=== PATIENT | male | born 1960 | race Caucasian/White ===

== ENCOUNTER 2017-10-09 15:48 | Inpatient (IN) | payer BC ==
[2017-10-09] MEDS ORDERED: Morphine INJ* 4 MG/ML 1 ML CARPUJECT IV ONE ×2 (17:20→20:13)
[2017-10-09] MEDS ORDERED: Ondansetron INJ* 2 MG/ML VIAL IV ONE (17:20)
[2017-10-09] MEDS ORDERED: NS 0.9% 1000 ML* 2,000 ML IV ONE (17:20)
[2017-10-09] MEDS ORDERED: Morphine INJ* 4 MG/ML 1 ML SYRINGE (NEW SYRINGE VERSION) ONE ×2 (17:42→23:33)
[2017-10-09 18:07] LABS: ABS Basophils 0 10^3/ul (0-0.2); ABS Eosinophils 0 10^3/ul (0-0.6); ABS Monocytes 1.5 10^3/ul (0-0.8); ABS Neutrophils 11.9 10^3/ul (1.5-7.7); ABS Nucleated RBC 0 10^3/ul; Eosinophil % 0.1 % (0-6); Hematocrit 45 % (42-52); Hemoglobin 15.6 g/dl (14.0-18.0); Lymphocyte % 7.2 % (25-47); Mean Corpuscular HGB Conc 35 g/dl (31-36); Mean Corpuscular Hemoglobin 32 pg (27-31); Mean Corpuscular Volume 91 fL (80-94); Mean Platelet Volume 9 um3 (7.4-10.4); Nucleated Red Blood Cells % 0; Platelet Count 179 10^3/ul (150-450); Red Blood Count 4.93 10^6/ul (4.0-5.4); Red Cell Distribution Width 14 % (10.5-15); White Blood Count 14.4 10^3/ul (3.5-10.8)
[2017-10-09 18:15] LABS: INR 0.94 (0.77-1.02)
[2017-10-09] MEDS ORDERED: Iohexol 300* (CONTRAST) 10 ML SDV IV ONE (19:17)
[2017-10-09 19:46] LABS: Urine Appearance Clear; Urine Blood Negative (Negative); Urine Color Yellow; Urine Ketones Negative (Negative); Urine Protein Negative (Negative); Urine Specific Gravity 1.008 (1.010-1.030); Urine Urobilinogen Negative (Negative)
--- NOTE | 2017-10-09 19:46 | RAD ---
INDICATION: Left lower quadrant pain with nausea and diarrhea COMPARISON: None TECHNIQUE: Axial source images were obtained from the hemidiaphragms to the symphysis pubis following administration of oral and intravenous contrast. 121 mL Omnipaque 300 was utilized. Coronal and sagittal reconstructed images were acquired. Lung bases: The lung bases are clear. Liver: The liver is enlarged with findings of hepatic steatosis. There are no masses. There is no ductal dilatation. Gallbladder: There are no calcified gallstones. There is no evidence of wall thickening or pericholecystic fluid. Spleen: The spleen is normal in size. There are no masses. Pancreas: There is no focal pancreatic mass or ductal dilatation. Adrenal glands: There is no evidence of adrenal mass. Kidneys: The kidneys are normal in size and position. There are prompt nephrograms and there is prompt excretion bilaterally. There is a 2.5 cm midpole left renal cyst. There is no evidence of nephrolithiasis. Adenopathy: There is no evidence of adenopathy by size criteria. Fluid collections: Perienteric mesenteric stranding at the level of the junction of the sigmoid and descending colon. Vessels:There are atherosclerotic changes involving the aorta and iliac vessels. There is no focal aneurysm. The IVC appears normal. GI tract: The upper GI tract is unremarkable. The terminal ileum and ileocecal valve appear normal. There is mural thickening with perienteric stranding at the level of the junction of sigmoid and descending colon. There are scattered diverticula of the sigmoid colon. There are no priors of obstruction. There is no free intraperitoneal air The remainder of the colon is unremarkable. Pelvic organs: The prostate and seminal vesicles appear normal Bladder: There are no bladder masses. Abdominal and pelvic soft tissues: The extraperitoneal abdominal and pelvic soft tissues appear normal.. Osseous structures: There are no acute osseous findings. Other: None IMPRESSION: MURAL THICKENING WITH PERIENTERIC STRANDING AT THE JUNCTION OF SIGMOID AND DESCENDING COLON. THE FINDINGS ARE COMPATIBLE WITH ACUTE DIVERTICULITIS.
[2017-10-09] MEDS ORDERED: Ciprofloxacin 400MG IVPREMIX(* 400 MG/200 ML BAG IVPB ONE (20:13)
[2017-10-09] MEDS ORDERED: NS 0.9% 1000 ML* 1,000 ML IV SCH (20:15)
[2017-10-09] MEDS ORDERED: Ondansetron INJ* 2 MG/ML VIAL IV PRN (21:02)
[2017-10-09] MEDS ORDERED: Acetaminophen TAB* 325 MG PO PRN (21:02)
--- NOTE | 2017-10-09 21:13 | ED ---
Shanel Young Thomas, scribed for Isra Cueto MD on 10/09/17 at 1749 . Abdominal Pain/Male - HPI Summary HPI Summary: The patient is a 47 year old male brought in by ambulance from [facility] urgent care complaining of non-radiating LLQ abdominal pain that began today at 00:00. Past surgical history includes appendectomy. - History of Current Complaint Chief Complaint: EDAbdPain Stated Complaint: ABD PAIN Time Seen by Provider: 10/09/17 17:11 Hx Obtained From: Patient Onset/Duration: Lasting Hours, Still Present Timing: Constant Pain Intensity: 7 Pain Scale Used: 0-10 Numeric Location: Discrete At: LLQ Aggravating Factor(s): Nothing Alleviating Factor(s): Nothing Associated Signs And Symptoms: Negative: Fever - Allergies/Home Medications Allergies/Adverse Reactions: Allergies Allergy/AdvReac Type Severity Reaction Status Date / Time Tetracyclines Allergy Severe GI Upset Verified 10/09/17 15:54 PMH/Surg Hx/FS Hx/Imm Hx Opthamlomology History: Denies: Hx Legally Blind EENT History: Denies: Hx Deafness - Surgical History Surgery Procedure, Year, and Place: Appendectomy Infectious Disease History: No Infectious Disease History: Denies: Traveled Outside the [place] in Last 30 Days - Family History Known Family History: Negative: Respiratory Disease - Social History Alcohol Use: Weekly Substance Use Type: Reports: None Smoking Status (MU): Former Smoker Review of Systems Negative: Fever Positive: Abdominal Pain All Other Systems Reviewed And Are Negative: Yes Physical Exam - Summary Physical Exam Summary: General: Well-appearing. Mild to moderate pain distress. Skin: warm, color reflects adequate perfusion, dry Head: normal Eyes: EOMI, RULA ENT: normal Neck: supple, nontender Respiratory: CTA, breath sounds present Cardiovascular: RRR Abdomen: He is tender to palpation to his LLQ. Bowel: hypoactive. Musculoskeletal: normal, strength/ROM intact Neurological: normal, sensory/motor intact, A&O x3 Psychological: affect/mood appropriate Triage Information Reviewed: Yes Vital Signs On Initial Exam: Initial Vitals Temp Pulse Resp BP Pulse Ox 99.1 F 115 17 152/94 98 10/09/17 15:49 10/09/17 15:49 10/09/17 15:49 10/09/17 15:49 10/09/17 15:49 Vital Signs Reviewed: Yes Diagnostics - Vital Signs Vital Signs Temp Pulse Resp BP Pulse Ox 10/09/17 15:49 99.1 F 115 17 152/94 98 - Laboratory Lab Results: Lab Results 10/09/17 10/09/17 10/09/17 Range/Units 17:55 17:55 17:55 WBC 14.4 H (3.5-10.8) 10^3/ul RBC 4.93 (4.0-5.4) 10^6/ul Hgb 15.6 (14.0-18.0) g/dl Hct 45 (42-52) % MCV 91 (80-94) fL MCH 32 H (27-31) pg MCHC 35 (31-36) g/dl RDW 14 (10.5-15) % Plt Count 179 (150-450) 10^3/ul MPV 9 (7.4-10.4) um3 Neut % (Auto) 82.3 (38-83) % Lymph % (Auto) 7.2 L (25-47) % Baker % (Auto) 10.1 H (0-7) % Eos % (Auto) 0.1 (0-6) % Baso % (Auto) 0.3 (0-2) % Absolute Neuts (auto) 11.9 H (1.5-7.7) 10^3/ul Absolute Lymphs (auto) 1.0 (1.0-4.8) 10^3/ul Absolute Monos (auto) 1.5 H (0-0.8) 10^3/ul Absolute Eos (auto) 0 (0-0.6) 10^3/ul Absolute Basos (auto) 0 (0-0.2) 10^3/ul Absolute Nucleated RBC 0 10^3/ul Nucleated RBC % 0 INR (Anticoag Therapy) 0.94 (0.77-1.02) APTT 31.1 (26.0-36.3) seconds Sodium 135 (133-145) mmol/L Potassium 3.9 (3.5-5.0) mmol/L Chloride 100 L (101-111) mmol/L Carbon Dioxide 29 (22-32) mmol/L Anion Gap 6 (2-11) mmol/L BUN 14 (6-24) mg/dL Creatinine 1.08 (0.67-1.17) mg/dL Est GFR ( Amer) 90.0 (>60) Est GFR (Non-Af Amer) 70.0 (>60) BUN/Creatinine Ratio 13.0 (8-20) Glucose 107 H (70-100) mg/dL Lactic Acid (0.5-2.0) mmol/L Calcium 9.5 (8.6-10.3) mg/dL Total Bilirubin 1.50 H (0.2-1.0) mg/dL AST 15 (13-39) U/L ALT 24 (7-52) U/L Alkaline Phosphatase 46 (34-104) U/L C-Reactive Protein 129.47 H (< 5.00) mg/L Total Protein 7.2 (6.4-8.9) g/dL Albumin 4.4 (3.2-5.2) g/dL Globulin 2.8 (2-4) g/dL Albumin/Globulin Ratio 1.6 (1-3) Lipase < 10 L (11.0-82.0) U/L Urine Color Urine Appearance Urine pH (5-9) Ur Specific Jenkins (1.010-1.030) Urine Protein (Negative) Urine Ketones (Negative) Urine Blood (Negative) Urine Nitrate (Negative) Urine Bilirubin (Negative) Urine Urobilinogen (Negative) Ur Leukocyte Esterase (Negative) Urine Glucose (Negative) 10/09/17 10/09/17 Range/Units 17:55 19:30 WBC (3.5-10.8) 10^3/ul RBC (4.0-5.4) 10^6/ul Hgb (14.0-18.0) g/dl Hct (42-52) % MCV (80-94) fL MCH (27-31) pg MCHC (31-36) g/dl RDW (10.5-15) % Plt Count (150-450) 10^3/ul MPV (7.4-10.4) um3 Neut % (Auto) (38-83) % Lymph % (Auto) (25-47) % Baker % (Auto) (0-7) % Eos % (Auto) (0-6) % Baso % (Auto) (0-2) % Absolute Neuts (auto) (1.5-7.7) 10^3/ul Absolute Lymphs (auto) (1.0-4.8) 10^3/ul Absolute Monos (auto) (0-0.8) 10^3/ul Absolute Eos (auto) (0-0.6) 10^3/ul Absolute Basos (auto) (0-0.2) 10^3/ul Absolute Nucleated RBC 10^3/ul Nucleated RBC % INR (Anticoag Therapy) (0.77-1.02) APTT (26.0-36.3) seconds Sodium (133-145) mmol/L Potassium (3.5-5.0) mmol/L Chloride (101-111) mmol/L Carbon Dioxide (22-32) mmol/L Anion Gap (2-11) mmol/L BUN (6-24) mg/dL Creatinine (0.67-1.17) mg/dL Est GFR ( Amer) (>60) Est GFR (Non-Af Amer) (>60) BUN/Creatinine Ratio (8-20) Glucose (70-100) mg/dL Lactic Acid 1.2 (0.5-2.0) mmol/L Calcium (8.6-10.3) mg/dL Total Bilirubin (0.2-1.0) mg/dL AST (13-39) U/L ALT (7-52) U/L Alkaline Phosphatase (34-104) U/L C-Reactive Protein (< 5.00) mg/L Total Protein (6.4-8.9) g/dL Albumin (3.2-5.2) g/dL Globulin (2-4) g/dL Albumin/Globulin Ratio (1-3) Lipase (11.0-82.0) U/L Urine Color Yellow Urine Appearance Clear Urine pH 7.0 (5-9) Ur Specific Jenkins 1.008 L (1.010-1.030) Urine Protein Negative (Negative) Urine Ketones Negative (Negative) Urine Blood Negative (Negative) Urine Nitrate Negative (Negative) Urine Bilirubin Negative (Negative) Urine Urobilinogen Negative (Negative) Ur Leukocyte Esterase Negative (Negative) Urine Glucose Negative (Negative) Result Diagrams: 10/09/17 17:55 10/09/17 17:55 Lab Statement: Any lab studies that have been ordered have been reviewed, and results considered in the medical decision making process. - CT CT Abd/Pel CT Interpretation: Positive (See Comments) - MURAL THICKENING WITH PERIENTERIC STRANDING AT THE JUNCTION OF SIGMOID AND DESCENDING COLON. THE FINDINGS ARE COMPATIBLE WITH ACUTE DIVERTICULITIS. Dr. Cueto has reviewed this report. CT Interpretation Completed By: Radiologist Abdominal Pain Fem Course/Dx - Course Course Of Treatment: ADMIT HOSPITALIST - Diagnoses Provider Diagnoses: Diverticulitis Discharge - Discharge Plan Condition: Stable Disposition: ADMITTED TO [facility] Referrals: Lencho Whipple MD [Primary Care Provider] - The documentation as recorded by the Shanel corea Thomas accurately reflects the service I personally performed and the decisions made by , Isra Cueto MD.
[2017-10-09] MEDS ORDERED: Morphine INJ* 4 MG/ML 1 ML SYRINGE (NEW SYRINGE VERSION) IV PRN (23:00)
[2017-10-09] MEDS: NS 0.9% 1000 ML* 1,000 ML IV SCH (23:00)
[2017-10-09] MEDS ORDERED: metroNIDAZOLE IV 500 MG/100ML* 500 MG/100 ML BAG IVPB ONE (23:15)
[2017-10-09] MEDS ORDERED: Ondansetron INJ* 2 MG/ML VIAL ONE (23:32)
--- NOTE | 2017-10-10 00:29 | HP ---
CC: Dr. Whipple * ADMISSION HISTORY AND PHYSICAL: DATE OF ADMISSION: PRIMARY CARE PROVIDER: Dr. Whipple. MY ATTENDING WHILE IN THE HOSPITAL: Dr. Wallace Burrell.* (DICTATED BY ELLIOT QUIROGA) CHIEF COMPLAINT: Abdominal pain x20 hours. HISTORY OF PRESENT ILLNESS: Mr. Mcdaniel is a 57-year-old male with past medical history significant only for peptic ulcer disease when he was 21, who presents with severe abdominal pain increasing since midnight of last night. The patient states that he has a 2-inch area of pain in his left lower quadrant, which he describes as stabbing, constant, getting worse. Responsive to pain medication, 7/10. After pain medications, 8/10 and it is worst. The patient has never had any episodes like this before. The patient had 2 small episodes of diarrhea within the past 24 hours, neither of which had any blood in them and were "normal color for him." The patient has not eaten since 8 o'clock last night. The patient has been nauseous, but had not vomited. The patient had subjective fevers and chills. Denied chest pain or shortness of breath. The patient states that the pain is worse with movement and slowly progressive. The patient took Tagamet at home but with no relief. The patient denied recent illness, exposure to flu. The patient has no long-term history of constipation. The patient has had colonoscopy at 48, which showed 2 non- cancerous polyps and a repeat colonoscopy at 54, which showed no polyps at all and is planning for another one in 10 years. The patient had his appendix out when he was in his teens in the 70s. PAST MEDICAL HISTORY: Peptic ulcer disease when he was 21, unknown if it was bleeding or not; gout, the patient has not had a flare in 5 years; ocular migraines, approximately 4 times a year. PAST SURGICAL HISTORY: Appendectomy. MEDICATIONS: 1. Allopurinol 300 mg p.o. daily. 2. Magnesium oxide 400 mg p.o. daily. ALLERGIES: The patient gets stomach upset from TETRACYCLINE. No other adverse reactions known. FAMILY HISTORY: The patient's father of [place] at 83 and also had CVA. The patient's mother of complications of chronic kidney disease when she was 94. The patient denies history of cancer in his family or any other conditions that are prevalent. The patient has one brother whose medical history is not known. SOCIAL HISTORY: The patient smoked for approximately 20 pack years, quit 18 years ago. The patient drinks alcohol socially generally on the weekends. The patient denies illicit drug use. The patient used to work at [employer] in [employer]. The patient is and has no children. REVIEW OF SYSTEMS: A 14-point review of systems was reviewed and is negative except as above. PHYSICAL EXAMINATION GENERAL: The patient is a 57-year-old male, who appears stated age and sitting comfortably in bed, in no acute distress. VITAL SIGNS: At the time of examination, temperature 101.1, pulse rate 92, respiratory rate 18, oxygen saturation 100% on room air, blood pressure 135/79. HEENT: Head normocephalic, atraumatic. Sclerae anicteric. No conjunctival injection. Nasal mucosa is moist. Oral mucosa moist. No pharyngeal erythema, discharge, or exudate. NECK: Supple, nontender. No lymphadenopathy. No carotid bruits auscultated. RESPIRATORY: Clear to auscultation bilaterally. No wheezes, rales, or rhonchi. Good air exchange bilaterally. CARDIAC: Regular rate and rhythm. No clicks, murmurs, gallops, or rubs. Pulses are 2+ in the bilateral dorsalis pedis, posterior tibialis, and radial areas. No lower extremity edema noted. ABDOMEN: Soft. Very tender to palpation in the left lower quadrant without rebound or referred tenderness. Bowel sounds present and normoactive in all 4 quadrants. No hepatosplenomegaly. No abdominal bruits auscultated. GENITOURINARY: No suprapubic tenderness or CVA tenderness. NEURO: Cranial nerves II through XII intact. Normal gait. No focal deficits. PSYCHIATRIC: Pleasant and cooperative. SKIN: Clean, dry, and intact. No rash. DIAGNOSTIC STUDIES/LAB DATA: White blood cell count 14.4, hemoglobin 15.6, hematocrit 45, and platelet count 179. INR 0.94, APTT 31.1. Sodium 135, potassium 3.9, chloride 100, carbon dioxide 29, anion gap 6, BUN 14, creatinine 1.08, glucose 107, lactic acid 1.2, calcium 9.5. Bilirubin 1.5, AST 15, ALT 24 , alkaline phosphatase 46. CRP 129.47. Total protein 7.2, albumin 4.4, globulin 2.8. Lipase less than 10. Urine: Yellow, clear, specific gravity 1.008, no other significant findings. Abdomen and pelvis CT read as thickening with perienteric stranding at the junction of the sigmoid and descending colon. These findings are compatible with acute diverticulitis. ASSESSMENT AND PLAN: The patient is a 57-year-old male with past medical history significant only for peptic ulcer disease and status post appendectomy, who presents with abdominal pain and CT exam findings consistent with diverticulitis. The patient has been started on ciprofloxacin and Flagyl and given total of 3 L of fluid. He will be admitted to the hospital for IV antibiotics and supportive care. 1. Acute diverticulitis. The patient will be started on ciprofloxacin and metronidazole. The patient has elevated white blood cell count, tachycardia, fever, and is systemic inflammatory response syndrome positive. The patient does not have lactic acidosis or hypotension. The patient has had 3 L of bolus fluids in the emergency department and will be continued on normal saline at 100 mL an hour. The patient will have a clear liquid diet, Zofran for nausea, and supportive care. 2. History of peptic ulcer disease. The patient has no symptoms consistent with peptic ulcer disease. At this time, we will start the patient on omeprazole while in the hospital for prophylaxis of ulcers. 3. Gout. Continue allopurinol. 4. Ocular migraines. Continue magnesium. 5. FEN. The patient will have a clear liquid diet and fluids 100 mL an hour as above. 6. DVT prophylaxis. The patient is moderate risk. The patient will have SCDs while in the hospital. 7. Disposition. The patient has been admitted to observation for IV antibiotics. 8. Code status. The patient would like to be a full code. The patient's surrogate decision maker is his , Chelsie Mcdaniel. TIME SPENT: Approximately 60 minutes was spent on this admission, 30 of which was spent [id number] with the patient obtaining history and physical and discussing the treatment plan. ELLIOT QUIROGA [id number]/[facility]PS #: [id number]
[2017-10-10] MEDS: HYDROmorphone INJ* 1 MG/ML CARPUJECT SYRINGE IV PRN ×4 (01:06→17:40)
[2017-10-10] MEDS: Omeprazole CAP* 20 MG PO SCH (05:02)
[2017-10-10 06:29] LABS: ABS Basophils 0 10^3/ul (0-0.2); ABS Eosinophils 0.1 10^3/ul (0-0.6); ABS Lymphocytes 1.1 10^3/ul (1.0-4.8); ABS Monocytes 1.4 10^3/ul (0-0.8); ABS Neutrophils 9.1 10^3/ul (1.5-7.7); ABS Nucleated RBC 0 10^3/ul; Eosinophil % 0.4 % (0-6); Hematocrit 38 % (42-52); Hemoglobin 13.4 g/dl (14.0-18.0); Lymphocyte % 9.5 % (25-47); Mean Corpuscular HGB Conc 35 g/dl (31-36); Mean Corpuscular Hemoglobin 32 pg (27-31); Mean Corpuscular Volume 92 fL (80-94); Mean Platelet Volume 9 um3 (7.4-10.4); Nucleated Red Blood Cells % 0.1; Platelet Count 143 10^3/ul (150-450); Red Blood Count 4.18 10^6/ul (4.0-5.4); Red Cell Distribution Width 14 % (10.5-15); White Blood Count 11.7 10^3/ul (3.5-10.8)
[2017-10-10] MEDS: Magnesium Oxide TAB* 400 MG PO SCH (09:27)
[2017-10-10] MEDS: Allopurinol TAB* 300 MG PO SCH (09:27)
[2017-10-10] MEDS: Ciprofloxacin 400MG IVPREMIX(* 400 MG/200 ML BAG IVPB SCH ×2 (09:27→20:09)
[2017-10-10] MEDS: NS 0.9% 1000 ML* 1,000 ML IV SCH ×2 (09:37→23:33)
[2017-10-10] MEDS: metroNIDAZOLE IV 500 MG/100ML* 500 MG/100 ML BAG IVPB SCH ×2 (11:10→21:17)
--- NOTE | 2017-10-10 13:22 | PN ---
Subjective Date of Service: 10/10/17 Interval History: Patient seen and examined at bedside. Denies fever, chills, shortness of breath , chest discomfort, N/V/D. Pt states that he continues to have left lower abdominal pain, that is improving. He reports passing a small amount of flatus. Family History: Unchanged from Admission Social History: Unchanged from Admission Past Medical History: Unchanged from Admission Objective Active Medications: Acetaminophen (Tylenol Tab*) 650 mg PO Q6H PRN Reason: FEVER/PAIN Allopurinol (Zyloprim Tab*) 300 mg PO DAILY JENI Hydromorphone HCl (Dilaudid Injic*) 1 mg IV Q4H PRN Reason: PAIN Ciprofloxacin/Dextrose (Cipro 400 Mg Ivpremix(*)) 400 mg in 200 mls @ 200 mls/ hr IVPB BID JENI Metronidazole/Sodium Chloride (Flagyl 500 Mg Ivpb*) 500 mg in 100 mls @ 100 mls /hr IVPB 1000,2200 JENI Sodium Chloride (Ns 0.9% 1000 Ml*) 1,000 mls @ 100 mls/hr IV PER RATE JENI Magnesium Oxide (Magox 400 Tab*) 400 mg PO DAILY JENI Omeprazole (Prilosec Cap*) 20 mg PO 0600 JENI Ondansetron HCl (Zofran Inj*) 4 mg IV Q6H PRN Reason: NAUSEA Vital Signs - 8 hr 10/10/17 10/10/17 10/10/17 05:56 09:27 11:16 Temperature 98.7 F 98.4 F Pulse Rate 87 85 Respiratory 16 14 18 Rate Blood Pressure 121/68 133/78 (mmHg) O2 Sat by Pulse 94 95 Oximetry Oxygen Devices in Use Now: None Appearance: NAD, laying in bed Ears/Nose/Mouth/Throat: Mucous Membranes Moist Respiratory: Symmetrical Chest Expansion and Respiratory Effort, Clear to Auscultation Cardiovascular: NL Sounds; No Murmurs; No JVD, RRR Abdominal: - - Bowel sounds present, abdomen soft, large, tender in the LLQ Extremities: No Edema Skin: No Rash or Ulcers Neurological: Alert and Oriented x 3, NL Muscle Strength and Tone Lines/Tubes/Other Access: Clean, Dry and Intact Peripheral IV - site benign Nutrition: Taking PO's Result Diagrams: 10/10/17 05:46 10/10/17 05:47 Additional Lab and Data: Assess/Plan/Problems-Billing Assessment: Mr. Mcdaniel is a 57 yo male with PMH significant for PUD, GOUT and ocular migraines who presented to the emergency room with complaints of abdominal pain. - Patient Problems (1) Diverticulitis Code(s): K57.92 - DVTRCLI OF INTEST, PART UNSP, W/O PERF OR ABSCESS W/O BLEED SNOMED Code(s): 335055247 Comment: - Afebrile and leukocytosis improving - Clear liquids until pain is improved - Continue pain management, cipro and flagyl IV (2) PUD (peptic ulcer disease) Code(s): K27.9 - PEPTIC ULC, SITE UNSP, UNSP AC OR CHR, W/O HEMOR OR PERF SNOMED Code(s): 85481645 Comment: - Continue omeprazole (3) Gout Code(s): M10.9 - GOUT, UNSPECIFIED SNOMED Code(s): 57487033 Comment: - Continue allopurinol (4) Ocular migraine Comment: - Continue magnesium (5) DVT prophylaxis Code(s): WCW5064 - SNOMED Code(s): 561058931 Comment: - SCDs (6) Full code status Code(s): Z78.9 - OTHER SPECIFIED HEALTH STATUS SNOMED Code(s): 123260579 Status and Disposition: OBV to Inpatient. Discharge to home when medically stable.
[2017-10-11] MEDS: HYDROmorphone INJ* 1 MG/ML CARPUJECT SYRINGE IV PRN ×3 (01:46→23:38)
[2017-10-11] MEDS: Omeprazole CAP* 20 MG PO SCH (05:55)
[2017-10-11 06:13] LABS: ABS Basophils 0 10^3/ul (0-0.2); ABS Eosinophils 0.1 10^3/ul (0-0.6); ABS Lymphocytes 1.2 10^3/ul (1.0-4.8); ABS Monocytes 0.9 10^3/ul (0-0.8); ABS Neutrophils 7.3 10^3/ul (1.5-7.7); ABS Nucleated RBC 0 10^3/ul; Eosinophil % 0.7 % (0-6); Hematocrit 36 % (42-52); Hemoglobin 12.6 g/dl (14.0-18.0); Lymphocyte % 12.9 % (25-47); Mean Corpuscular HGB Conc 36 g/dl (31-36); Mean Corpuscular Hemoglobin 32 pg (27-31); Mean Corpuscular Volume 90 fL (80-94); Mean Platelet Volume 9 um3 (7.4-10.4); Nucleated Red Blood Cells % 0.1; Platelet Count 145 10^3/ul (150-450); Red Blood Count 3.95 10^6/ul (4.0-5.4); Red Cell Distribution Width 14 % (10.5-15); White Blood Count 9.6 10^3/ul (3.5-10.8)
[2017-10-11] MEDS: Allopurinol TAB* 300 MG PO SCH (10:06)
[2017-10-11] MEDS: Magnesium Oxide TAB* 400 MG PO SCH (10:06)
[2017-10-11] MEDS: Ciprofloxacin 400MG IVPREMIX(* 400 MG/200 ML BAG IVPB SCH ×2 (10:06→20:47)
[2017-10-11] MEDS: NS 0.9% 1000 ML* 1,000 ML IV SCH (10:06)
[2017-10-11] MEDS: metroNIDAZOLE IV 500 MG/100ML* 500 MG/100 ML BAG IVPB SCH ×2 (13:25→22:13)
--- NOTE | 2017-10-11 17:12 | PN ---
Subjective Date of Service: 10/11/17 Interval History: Patient seen and examined at bedside. Pt states that he no longer has pain when laying down, except if someone presses on his abdomen. He reports abdominal discomfort when he is up and ambulating. Reports intermittent fever, chills, and nausea. Denies shortness of breath, chest discomfort, V/D. Family History: Unchanged from Admission Social History: Unchanged from Admission Past Medical History: Unchanged from Admission Objective Active Medications: Acetaminophen (Tylenol Tab*) 650 mg PO Q6H PRN Reason: FEVER/PAIN Allopurinol (Zyloprim Tab*) 300 mg PO DAILY JENI Hydromorphone HCl (Dilaudid Injic*) 1 mg IV Q4H PRN Reason: PAIN Ciprofloxacin/Dextrose (Cipro 400 Mg Ivpremix(*)) 400 mg in 200 mls @ 200 mls/ hr IVPB BID JENI Metronidazole/Sodium Chloride (Flagyl 500 Mg Ivpb*) 500 mg in 100 mls @ 100 mls /hr IVPB 1000,2200 JENI Sodium Chloride (Ns 0.9% 1000 Ml*) 1,000 mls @ 100 mls/hr IV PER RATE JENI Magnesium Oxide (Magox 400 Tab*) 400 mg PO DAILY JENI Omeprazole (Prilosec Cap*) 20 mg PO 0600 JENI Ondansetron HCl (Zofran Inj*) 4 mg IV Q6H PRN Reason: NAUSEA Oxygen Devices in Use Now: None Appearance: NAD, laying in bed Ears/Nose/Mouth/Throat: Mucous Membranes Moist Respiratory: Symmetrical Chest Expansion and Respiratory Effort, Clear to Auscultation Cardiovascular: NL Sounds; No Murmurs; No JVD, RRR Abdominal: - - Bowel sounds present, ABD soft, tender in the left LQ Extremities: No Edema Skin: No Rash or Ulcers Neurological: Alert and Oriented x 3, NL Muscle Strength and Tone Lines/Tubes/Other Access: Clean, Dry and Intact Peripheral IV - site benign Nutrition: Taking PO's Result Diagrams: 10/11/17 05:43 10/10/17 05:47 Additional Lab and Data: Assess/Plan/Problems-Billing Assessment: Mr. Mcdaniel is a 57 yo male with PMH significant for PUD, GOUT and ocular migraines who presented to the emergency room with complaints of abdominal pain. - Patient Problems (1) Diverticulitis Code(s): K57.92 - DVTRCLI OF INTEST, PART UNSP, W/O PERF OR ABSCESS W/O BLEED SNOMED Code(s): 918699483 Comment: - Afebrile and leukocytosis improving - Tolerating clear liquids, advance diet to full liquids - Continue pain management, cipro and flagyl IV (2) Elevated bilirubin Code(s): R17 - UNSPECIFIED JAUNDICE SNOMED Code(s): 419765994 Comment: - Suspect secondary to infection vs Gilbert's syndrome - Will check a direct bili (3) PUD (peptic ulcer disease) Code(s): K27.9 - PEPTIC ULC, SITE UNSP, UNSP AC OR CHR, W/O HEMOR OR PERF SNOMED Code(s): 10223705 Comment: - Continue omeprazole (4) Gout Code(s): M10.9 - GOUT, UNSPECIFIED SNOMED Code(s): 90073960 Comment: - Continue allopurinol (5) Ocular migraine Comment: - Continue magnesium (6) DVT prophylaxis Code(s): [id number] - SNOMED Code(s): 887913732 Comment: - SCDs (7) Full code status Code(s): Z78.9 - OTHER SPECIFIED HEALTH STATUS SNOMED Code(s): 670953763 Status and Disposition: Inpatient. Discharge to home when medically stable, possibly in the AM.
[2017-10-12] MEDS: NS 0.9% 1000 ML* 1,000 ML IV SCH (00:17)
[2017-10-12] MEDS: Omeprazole CAP* 20 MG PO SCH (05:52)
[2017-10-12 07:03] LABS: ABS Basophils 0 10^3/ul (0-0.2); ABS Eosinophils 0.3 10^3/ul (0-0.6); ABS Lymphocytes 1.3 10^3/ul (1.0-4.8); ABS Monocytes 0.6 10^3/ul (0-0.8); ABS Neutrophils 3.6 10^3/ul (1.5-7.7); ABS Nucleated RBC 0 10^3/ul; Eosinophil % 4.5 % (0-6); Hematocrit 36 % (42-52); Hemoglobin 12.5 g/dl (14.0-18.0); Lymphocyte % 22.4 % (25-47); Mean Corpuscular HGB Conc 35 g/dl (31-36); Mean Corpuscular Hemoglobin 32 pg (27-31); Mean Corpuscular Volume 90 fL (80-94); Mean Platelet Volume 8 um3 (7.4-10.4); Nucleated Red Blood Cells % 0.1; Platelet Count 161 10^3/ul (150-450); Red Blood Count 3.94 10^6/ul (4.0-5.4); Red Cell Distribution Width 14 % (10.5-15); White Blood Count 5.8 10^3/ul (3.5-10.8)
[2017-10-12] MEDS: Ciprofloxacin 400MG IVPREMIX(* 400 MG/200 ML BAG IVPB SCH (09:14)
[2017-10-12] MEDS: Magnesium Oxide TAB* 400 MG PO SCH (09:14)
[2017-10-12] MEDS: Allopurinol TAB* 300 MG PO SCH (09:14)
[2017-10-12] MEDS: metroNIDAZOLE IV 500 MG/100ML* 500 MG/100 ML BAG IVPB SCH (10:24)
--- NOTE | 2017-10-12 12:26 | PN ---
Progress Note - Progress Note Date of Service: 10/12/17 Note: Time spent on discharge 40 minutes.
[2017-10-12] MEDS ORDERED: metroNIDAZOLE TAB* 250 MG PO SCH (14:00)
[2017-10-12 14:33] VITALS: BP 147/81
[2017-10-12] MEDS ORDERED: Ciprofloxacin TAB* 500 MG PO SCH (21:00)
--- NOTE | 2017-10-13 04:37 | DS ---
CC: Dr. Whipple DISCHARGE SUMMARY: DATE OF ADMISSION: DATE OF DISCHARGE: 10/12/17 HISTORY: This 57-year-old man presented with abdominal pain for about a day. On examination, he was very tender in the left lower quadrant. CT scan was consistent with diverticulitis at the junction of the sigmoid and descending colon. The patient was treated with intravenous metronidazole and ciprofloxacin. He did well. He still had some pain in the left lower quadrant on the day of discharge, but this was much improved. He was to lerating the diet well. He was very comfortable going home. He did have minor irritation of the right eye on the day of discharge. There was minimal amount of e rythema around the eye, not really conjunctival; I think some redness around the skin from him frank barragan. FINAL DIAGNOSES: 1. Acute diverticulitis. 2. History of peptic ulcerative disease, but no medication for this at home. 3. Gout. 4. Ocular migraines. DISCHARGE MEDICATIONS: 1. Acetaminophen 650 mg every 6 hours p.r.n. 2. Ciprofloxacin 500 mg b.i.d. for 5 days. 3. Metronidazole 500 mg t.i.d. for 5 days. 4. Magnesium oxide 400 mg daily. 5. Allopurinol 300 mg daily. 6. Ibuprofen 200 mg every 6 hours p.r.n. 7. Cimetidine 400 mg b.i.d. [id number]/[facility] #: [id number]
== END 2017-10-12 14:15 | disposition home or self-care (01) | DRG 244 ==
LOC: ED 15:48 → MED 21:52 → OBSVTOIN 10-10 14:00
PROVIDERS: ADMIT Hospitalist; ATTEND Internal Medicine
DX: K57.32 Diverticulitis of large intestine without perforation or abscess without bleeding (principal); R17 Unspecified jaundice; M10.9 Gout, unspecified; G43.809 Other migraine, not intractable, without status migrainosus; Z79.899 Other long term (current) drug therapy; Z88.8 Allergy status to other drugs, medicaments and biological substances; Z82.49 Family history of ischemic heart disease and other diseases of the circulatory system; Z82.3 Family history of stroke; Z84.1 Family history of disorders of kidney and ureter; Z87.891 Personal history of nicotine dependence; Z87.11 Personal history of peptic ulcer disease
CPT/HCPCS: 36415; 74177; 80053; 81003; 82248; 83605; 83690; 83735; 85025; 85610; 85730; 86140; 99283; A9270-GY; J0744; J1170; J2270; J2405; J3490; Q9967